=== PATIENT | female | born 1930 ===

== ENCOUNTER 2021-11-26 08:05 | Outpatient (CLI) | payer OTHER | END 2021-11-26 08:11 | disposition home or self-care (01) | LOC: RX STUDY 08:05 | DX: R13.10 Dysphagia, unspecified (principal) ==

== ENCOUNTER 2022-05-08 07:17 | Outpatient (CLI) | payer OTHER | END 2022-05-08 07:19 | disposition home or self-care (01) | LOC: RX STUDY 07:17 → SONOGRAMA 07:17 | DX: R13.12 Dysphagia, oropharyngeal phase (principal) ==